=== PATIENT | female | born 1970 | race African-American/Black ===

== ENCOUNTER 2016-07-25 16:28 | Emergency (ER) | payer MEDICAID, OTHER ==
--- NOTE | 2016-07-25 17:04 | ER Document Report ---
ED Medical Screen (RME) - General Stated Complaint: FALL,SHOULDER PAIN,CHEST DISCOMFORT Notes: 46 yo mis-stepped off sidewalk. fell and hit left shoulder on concrete. c/o pain to left shoulder, left chest. abrasion to left knee. no LOC. no neck pain clavicle nontender. + tenderness to left anterior AC area and left humerus. TRAVEL OUTSIDE OF THE [place] IN LAST 30 DAYS: No - Related Data Allergies/Adverse Reactions: morphine [Morphine] Allergy (Mild, Verified 10/21/15 09:21) Hives Past Medical History - Past Medical History Cardiac Medical History: Reports: Hx Hypertension Pulmonary Medical History: Reports: Hx Bronchitis Endocrine Medical History: Reports: Hx Diabetes Mellitus Type 2 Musculoskeltal Medical History: Reports Hx Arthritis Skin Medical History: Reports Hx Psoriasis Past Surgical History: Reports: Hx Oral Surgery - wisdom - Immunizations Immunizations up to date: Yes Hx Diphtheria, Pertussis, Tetanus Vaccination: No Physical Exam - Vital signs Vitals: Temp Pulse Resp BP Pulse Ox 98.1 F 58 L 18 153/60 H 99 07/25/16 16:53 07/25/16 16:53 07/25/16 16:53 07/25/16 16:53 07/25/16 16:53 Course - Vital Signs Vital signs: Temp Pulse Resp BP Pulse Ox 98.1 F 58 L 18 153/60 H 99 07/25/16 16:53 07/25/16 16:53 07/25/16 16:53 07/25/16 16:53 07/25/16 16:53
--- NOTE | 2016-07-25 19:01 | ER Document Report ---
ED General - General Chief Complaint: Fall Stated Complaint: FALL,SHOULDER PAIN,CHEST DISCOMFORT Mode of Arrival: Ambulatory Information source: Patient Notes: Patient is a 46-year-old -[place] female who presents with left shoulder and left arm pain that started after she fell around 5 PM this evening. She tripped stepping off the sidewalk and hit the cement tire stop at the gas station. Denies any head injury or loss of consciousness or neck pain. Patient unable to move left arm due to pain. She has not taken anything for this. TRAVEL OUTSIDE OF THE [place] IN LAST 30 DAYS: No - Related Data Allergies/Adverse Reactions: morphine [Morphine] Allergy (Mild, Verified 07/25/16 17:04) Hives Past Medical History - Social History Smoking Status: Never Smoker Chew tobacco use (# tins/day): No Frequency of alcohol use: None Drug Abuse: None Family History: Reviewed & Not Pertinent Patient has suicidal ideation: No Patient has homicidal ideation: No - Past Medical History Cardiac Medical History: Reports: Hx Hypertension Pulmonary Medical History: Reports: Hx Bronchitis Endocrine Medical History: Reports: Hx Diabetes Mellitus Type 2 Renal/ Medical History: Denies: Hx Peritoneal Dialysis Musculoskeltal Medical History: Reports Hx Arthritis Skin Medical History: Reports Hx Psoriasis Past Surgical History: Reports: Hx Oral Surgery - wisdom - Immunizations Immunizations up to date: Yes Hx Diphtheria, Pertussis, Tetanus Vaccination: Yes Review of Systems - Review of Systems Constitutional: No symptoms reported EENT: No symptoms reported Cardiovascular: No symptoms reported Respiratory: No symptoms reported Gastrointestinal: No symptoms reported Genitourinary: No symptoms reported Female Genitourinary: No symptoms reported Musculoskeletal: See HPI Skin: No symptoms reported Hematologic/Lymphatic: No symptoms reported Neurological/Psychological: No symptoms reported Physical Exam - Vital signs Vitals: Temp Pulse Resp BP Pulse Ox 98.1 F 58 L 18 153/60 H 99 07/25/16 16:53 07/25/16 16:53 07/25/16 16:53 07/25/16 16:53 07/25/16 16:53 Interpretation: Hypertensive - Notes Notes: PHYSICAL EXAM: CONSTITUTIONAL: Alert and oriented, well-appearing and in no acute distress. HENT: Normocephalic, atraumatic. Moist mucous membranes. EYES: Pupils equal round and reactive to light, EOM intact. Sclera anicteric, conjunctiva are normal. No entrapment. NECK: supple without lymphadenopathy. No midline tenderness or paraspinous muscle spasms. No step-offs or deformities. ROM intact. HEART: Regular rate and rhythm without murmurs. LUNGS: CTAB and equal. No wheezes, rales or rhonchi. BACK: nontender, no paraspinous spasm, 5+/5 strengths, DTRs 2+, SLR -. EXTREMITIES: Left shoulder - non-tender to clavicle without deformities or stepoffs, tender to palpation along trapezius and posterior scapula. AROM limited due to pain, passive ROM intact in abduction to 90 degrees. No deformity palpable. No ecchymosis or abrasions noted. All other extremities - Normal range of motion, no pitting edema. No cyanosis. Cap Refill <3 seconds. NEURO: Cranial nerves grossly intact. Normal sensory/motor exams. PSYCH: Normal mood, normal affect. SKIN: Warm and dry. Normal turgor. No rashes or lesions noted. Abrasions to left anterior knee - bleeding controlled. Course - Re-evaluation Re-evalutation: 07/25/16 18:59 Patient seen and examined. No clavicle deformity. No evidence of shoulder dislocation on exam. Xrays reviewed negative for acute injury or bony abnormality. No pneumothorax noted. Given PO pain medication and provided sling. Discussed close follow-up with orthopedics. Discharged home in stable condition, scripts provided. Patient gave verbal agreement to plan, all questions answered. - Vital Signs Vital signs: Temp Pulse Resp BP Pulse Ox 98.1 F 58 L 18 153/60 H 99 07/25/16 16:53 07/25/16 16:53 07/25/16 16:53 07/25/16 16:53 07/25/16 16:53 - Diagnostic Test Radiology reviewed: Image reviewed, Reports reviewed Discharge - Discharge Clinical Impression: Fall, accidental Qualifiers: Encounter type: initial encounter Qualified Code(s): W19.XXXA - Unspecified fall, initial encounter Contusion of left shoulder Qualifiers: Encounter type: initial encounter Qualified Code(s): S40.012A - Contusion of left shoulder, initial encounter Contusion of left knee, initial encounter Qualifiers: Encounter type: initial encounter Qualified Code(s): S80.02XA - Contusion of left knee, initial encounter Condition: Stable Disposition: HOME, SELF-CARE Additional Instructions: Shoulder Injury You have injured your shoulder. This usually results from stretching or tearing of the tendons during trauma. Time and protection are required in order to heal properly. Many injuries are quite disabling, and should be taken seriously. Initial treatment includes cold packs and a sling to rest the shoulder. The physician has assessed the seriousness of your injury, and has outlined a treatment plan. Understand that this treatment may change, depending on how you progress. If a re-examination was recommended, it is important that you follow up as instructed. Some shoulder injuries (such as partial tear of the rotator cuff) are only suspected after you've failed to improve. Call us if there's severe pain, numbness, or loss of function. Muscle Relaxers Muscle relaxing medications are usually prescribed for acute muscle spasm or injury to the neck and back. They are often combined with antiinflammatory pain medication for increased relief. You may stop the muscle relaxer when the pain and stiffness have improved. Start the medication again if spasms recur. Muscle relaxers may cause drowsiness, especially with the first dose. Do not operate machinery or drive while under the effects of the medication. Most muscle relaxers last up to 24 hours. Do not combine the medication with alcohol. Oral Narcotic Medication You have been given a prescription for pain control. This medication is a narcotic. It's best taken with food, as nausea can result if taken on an empty stomach. Don't operate machinery or drive within six hours of taking this medication. Do not combine this medicine with alcohol, or with any medication which can cause sedation (such as cold tablets or sleeping pills) unless you get permission from the physician. Narcotics tend to cause constipation. If possible, drink plenty of fluids and eat a diet high in fiber and fruits. Return immediately for any new or worsening symptoms. Follow-up with primary care provider, call tomorrow to make followup appointment. Prescriptions: Oxycodone HCl/Acetaminophen [Percocet 5-325 mg Tablet] 1 tab PO Q6HP PRN #10 tablet PRN Reason: Methocarbamol [Robaxin 500 mg Tablet] 500 mg PO TID #20 tablet Ondansetron [Zofran Odt 4 mg Tablet] 1 tab PO Q4H PRN #15 tab.rapdis PRN Reason: For Nausea/Vomiting Forms: Return to Work, Elevated Blood Pressure Referrals: SERGIO JOHNSTON MD [ACTIVE STAFF] - Follow up in 3-5 days (call tomorrow to schedule follow-up appointment)
[2016-07-25] MEDS ORDERED: ONDANSETRON 4 MG TAB.RAPDIS PO ONE (19:06)
[2016-07-25] MEDS ORDERED: OXYCODONE-ACETAMINOPHEN 5-325 MG TABLET PO ONE (19:06)
[2016-07-25 19:17] VITALS: BP 149/70
== END 2016-07-25 19:18 | disposition home or self-care (01) ==
LOC: ER 16:28
DX: S40.012A Contusion of left shoulder, initial encounter (principal); S80.02XA Contusion of left knee, initial encounter; W10.1XXA Fall (on)(from) sidewalk curb, initial encounter; Y92.524 Gas station as the place of occurrence of the external cause; M25.512 Pain in left shoulder; M79.602 Pain in left arm; I10 Essential (primary) hypertension; E11.9 Type 2 diabetes mellitus without complications; Z88.5 Allergy status to narcotic agent
CPT/HCPCS: 99283; 73060; 73030; S0119